=== PATIENT | female | born 1935 | race Caucasian/White ===

== ENCOUNTER 2016-11-01 13:47 | Emergency (ER) | payer MEDICARE, OTHER ==
[~2016-11-01] VITALS: Ht 157.5 cm; Wt 75.0 kg
[~2016-11-01 13:47] MED LIST: ALEN70TA30 PO; AMLO-145 PO; ASPI-664 PO; CELE200C PO; CRES10 PO; DONE10TA7 PO; DULO30CA45 PO; ESOM40VI PO; FURO20TA3 PO; MECL25TA2 PO; MONT10TA24 PO; POTA20TA15 PO; TRAM-408 PO; VALS1TAB76 PO
[2016-11-01 13:48] VITALS: Ht 157.5 cm; Wt 75.0 kg
[2016-11-01] MEDS ORDERED: KETOROLAC 15 MG INJ IV STA (13:52)
[2016-11-01] MEDS ORDERED: SOD CHLORIDE 0.9% 500 ML IV STA (13:52)
[2016-11-01] MEDS ORDERED: LORAZEPAM 2 MG INJ IV ONE (14:00)
[2016-11-01] MEDS ORDERED: LORAZEPAM 2 MG INJ ONE (14:32)
--- NOTE | 2016-11-01 14:48 | RADRPT ---
PROCEDURE: XR Chest. CLINICAL INDICATION: Chest pain, abdominal pain TECHNIQUE: AP view of the chest was performed. COMPARISON: February 18, 2013 FINDINGS: The cardiomediastinal silhouette is within normal limits. The lungs are clear. No signs of pleural f luid or pneumothorax are seen. The osseous structures and soft tissues are unremarkable. IMPRESSION: No evidence for active cardiopulmonary disease. No interval change. RPTAT: QQ .Kayleigh Nick MD, MD Date Time Electronically viewed and signed by .Kayleigh Nick MD, MD on 11/01/2016 14:47 .F/
[2016-11-01 14:58] LABS: BASOPHILS % 0.4 % (0.0-2.0); EOSINOPHILS # 0.1 10^3/ul (0.0-0.5); EOSINOPHILS % 1.8 % (0.0-7.0); HEMATOCRIT 27.5 % (37.0-47.0); HEMOGLOBIN 9.6 g/dl (12.0-16.0); LYMPHOCYTES % 30.3 % (15.0-51.0); MEAN CORPUSCULAR HEMOGLOBIN 33.4 pg (29.0-33.0); MEAN CORPUSCULAR VOLUME 95.6 fl (82.0-101.0); MEAN PLATELET VOLUME 8.3 fl (7.4-10.4); MONOCYTE # 0.7 10^3/ul (0.3-0.9); MONOCYTES % 10.3 % (0.0-11.0); NEUTROPHIL # 3.8 10^3/ul (1.6-7.5); NEUTROPHILS % 57.2 % (39.0-77.0); PLATELET COUNT 183 10^3/UL (140-440); RED BLOOD COUNT 2.88 10^6/ul (4.20-5.40); UNCORRECTED WBC 6.7 10^3/ul (4.8-10.8); WHITE BLOOD COUNT 6.7 10^3/ul (4.8-10.8)
[2016-11-01 15:03] LABS: ALBUMIN 3.7 g/dl (3.3-4.9); CHLORIDE 98 mmol/L (97-110)
[2016-11-01 15:04] LABS: SODIUM 133 mmol/L (135-144)
[2016-11-01 15:06] LABS: ALANINE AMINOTRANSFERASE 18 IU/L (13-69); ALBUMIN/GLOBULIN RATIO 1.19; ALKALINE PHOSPHATASE 61 IU/L (42-121); ANION GAP 15 (8-16); ASPARTATE AMINO TRANSFERASE 15 IU/L (15-46); BILIRUBIN,INDIRECT 0.1 mg/dl (0-1.1); BILIRUBIN,TOTAL 0.1 mg/dl (0.2-1.3); BLOOD UREA NITROGEN 17 mg/dl (7-20); CALCIUM 9.3 mg/dl (8.4-10.2); CARBON DIOXIDE 24 mmol/L (21-31); CREATININE 0.98 mg/dl (0.44-1.00); GLUCOSE 95 mg/dl (70-220); TOTAL PROTEIN 6.8 g/dl (6.1-8.1)
[2016-11-01 15:25] LABS: CONDITION 1; LH ANALYZER COMMENTS 1
[2016-11-01 15:34] LABS: TROPONIN-I < 0.012 ng/ml (0.00-0.12)
[2016-11-01] MEDS ORDERED: CELE200C PO (16:02)
[2016-11-01] MEDS ORDERED: VALS160T20 PO (16:03)
[2016-11-01] MEDS ORDERED: CRES10 PO (16:03)
[2016-11-01] MEDS ORDERED: LUBI24CA7 PO (16:05)
[2016-11-01] MEDS ORDERED: MECL-77 PO (16:06)
[2016-11-01] MEDS ORDERED: TRAM-40 PO (16:08)
[2016-11-01] MEDS ORDERED: TRAZ50TA18 PO (16:09)
[2016-11-01] MEDS ORDERED: ALEN70TA30 PO (16:09)
[2016-11-01] MEDS ORDERED: FURO20TA3 PO (16:11)
[2016-11-01 16:28] LABS: URINE BILIRUBIN (Dip) NEGATIVE (NEGATIVE); URINE BLOOD (Dip) TRACE (NEGATIVE); URINE COLOR LT. YELLOW (YELLOW); URINE GLUCOSE (Dip) NEGATIVE (NEGATIVE); URINE KETONES (Dip) NEGATIVE (NEGATIVE); URINE LEUKOCYTE ESTERASE (Dip) 1+ (NEGATIVE); URINE NITRITE (Dip) NEGATIVE (NEGATIVE); URINE TOTAL PROTEIN (Dip) NEGATIVE (NEGATIVE); URINE UROBILINOGEN (Dip) 0.2 E.U./dL (0.1-1.0)
[2016-11-01 16:44] LABS: ADD UMIC YES
[2016-11-01 16:45] LABS: BACTERIA,URINE MANY; SQUAMOUS EPITHELIAL CELL,UR FEW; URINE RBCS 0-2 /HPF (0)
[2016-11-01] MEDS ORDERED: ALPR0.5T PO (17:12)
[2016-11-01] MEDS ORDERED: CEPH-443 PO (17:12)
[2016-11-01] MEDS ORDERED: NAPR-260 PO (17:12)
--- NOTE | 2016-11-01 17:22 | ERD ---
ER Documentation Chief Complaint Date/Time DATE: 11/01/16 TIME: 17:14 Chief Complaint To room BIBA with copmplaint of Anxiety HPI 81-year-old woman brought in by EMS from home for elevated blood pressure, anxiety, and left upper back pain. She has had these symptoms before. She denies chest pain or shortness of breath, no fevers or chills, no vomiting or diarrhea. ROS All systems reviewed and are negative except as per history of present illness. Medications Home Meds Active Scripts Alprazolam* (Xanax*) 0.5 Mg Tab, 0.5 MG PO TID for MUSCLE SPASMS, #12 TAB Prov:CECILIA JACOBO MD 11/01/16 Cephalexin* (Keflex*) 500 Mg Capsule, 500 MG PO TID for 5 Days, CAP Prov:CECILIA JACOBO MD 11/01/16 Naproxen* (Naprosyn*) 500 Mg Tablet, 500 MG PO BID Y for PAIN AND/OR INFLAMMATION, #30 TAB Prov:CECILIA JACOBO MD 11/01/16 Reported Medications Furosemide* (Furosemide*) 20 Mg Tablet, 20 MG PO DAILY, #60 TAB 11/01/16 Alendronate Sodium* (Fosamax*) 70 Mg Tablet, 70 MG PO Q7D, #4 TAB 11/01/16 Trazodone Hcl* (Trazodone Hcl*) 50 Mg Tablet, 50 MG PO QHS, #30 TAB 11/01/16 Tramadol Hcl* (Ultram*) 50 Mg Tablet, 50 MG PO Q12H Y for PAIN, TAB 11/01/16 Meclizine Hcl* (Meclizine Hcl*) 25 Mg Tablet, 25 MG PO Q12 Y for DIZZINESS, TAB 11/01/16 Lubiprostone* (Amitiza*) 24 Mcg Capsule, 24 MCG PO BID, #60 CAP 11/01/16 Valsartan* (Diovan*) 160 Mg Tablet, 160 MG PO DAILY, TAB 11/01/16 Rosuvastatin Calcium* (Crestor*) 10 Mg Tablet, 10 MG PO QHS, #30 TAB 11/01/16 Celecoxib* (Celebrex*) 200 Mg Capsule, 200 MG PO DAILY, CAP 11/01/16 Discontinued Reported Medications Meclizine Hcl* (Antivert*) 25 Mg Tablet, 1 TAB PO BID 02/18/13 Donepezil* (Donepezil*) 10 Mg Tablet, 1 TAB PO DAILY 02/18/13 Aspirin (Aspirin) 81 Mg Tablet.dr, 1 TAB PO DAILY 02/18/13 Alendronate Sodium* (Fosamax*) 70 Mg Tablet, 1 TAB PO WEEKLY 02/18/13 Duloxetine Hcl* (Cymbalta*) 30 Mg Capsule.dr, 1 CAP PO DAILY 02/18/13 Esomeprazole Sodium (Nexium I.V.) 40 Mg/Vial Vial, 1 CAP PO 02/18/13 Furosemide* (Furosemide*) 20 Mg Tablet, 1 TAB PO DAILY 02/18/13 Tramadol Hcl (Rybix Odt) 50 Mg Tab.rapdis, 1 TAB PO Q8HRS 02/18/13 Amlodipine Besylate* (Amlodipine Besylate*) 5 Mg Tablet, 1 TAB PO DAILY 02/18/13 Celecoxib* (Celebrex*) 200 Mg Capsule, 1 TAB PO DAILY 02/18/13 Montelukast Sodium* (Montelukast Sodium*) 10 Mg Tablet, 1 TAB PO DAILY 02/18/13 Valsartan-Hydrochlorothiazide (Valsartan-HCTZ) 1 Each Tablet, 1 TAB PO DAILY 02/18/13 Rosuvastatin Calcium* (Crestor*) 10 Mg Tablet, 10 MG PO DAILY 02/18/13 Potassium Chloride* (K-Dur*) 20 Meq Tab.prt.sr, 20 PO DAILY 02/18/13 Allergies Allergies: Coded Allergies: No Known Allergy (Unverified , 11/01/16) PMhx/Soc Depression, anxiety, obesity, hypertension History of Surgery: No Anesthesia Reaction: No Hx Neurological Disorder: No Hx Respiratory Disorders: No Hx Cardiac Disorders: Yes (HTN) Hx Psychiatric Problems: No Hx Miscellaneous Medical Probl: No Hx Alcohol Use: No Hx Substance Use: No Hx Tobacco Use: No Smoking Status: Never smoker FmHx Family History: No diabetes Physical Exam Vitals Vital Signs Date Time Temp Pulse Resp B/P Pulse Ox O2 Delivery O2 Flow Rate FiO2 11/01/16 14:45 98.3 69 20 141/64 93 Room Air 11/01/16 13:48 98.3 73 20 150/75 94 Physical Exam GENERAL: Well-developed, well-nourished, anxious, dehydrated HEENT: Dry mucous membranes, pink conjunctiva, no cervical spine tenderness or step-off deformities, no goiter, no jaundice or icterus, extraocular movements intact without pain. No submandibular induration, and no pharyngeal erythema NEURO: Alert and oriented 3, cranial nerves II through XII intact bilaterally, pupils equal round reactive to light, no focal deficits or facial asymmetry, sensation intact distally Strength 5/5 in upper and lower extremities bilaterally CARDIAC: Regular rate and rhythm, no murmurs rubs or gallops LUNGS: Clear bilaterally no wheezing crackles or stridor ABDOMEN: Soft nontender, no guarding, no rigidity, no rebound, no psoas sign no obturator sign. Normoactive bowel sounds SKIN: Warm and dry to touch, no abrasions, contusions, or hematomas, no lacerations, no ecchymosis, no target lesions, and without ulcers EXTREMITIES: No clubbing cyanosis or edema, calves are bilaterally symmetrical, no Homans sign, no popliteal cord sign. Distal pulses equal and bilateral PSYCH: Anxious Result Diagram: 11/01/16 1423 11/01/16 1423 Results 24 hrs Laboratory Tests Test 11/01/16 14:23 11/01/16 16:16 Alanine Aminotransferase (ALT/SGPT) 18IU/L Albumin 3.7g/dl Albumin/Globulin Ratio 1.19 Alkaline Phosphatase 61IU/L Anion Gap 15 Aspartate Amino Transf (AST/SGOT) 15IU/L Basophils # 0.010^3/ul Basophils % 0.4% Blood Morphology Comment Blood Urea Nitrogen 17mg/dl Calcium Level 9.3mg/dl Carbon Dioxide Level 24mmol/L Chloride Level 98mmol/L Creatinine 0.98mg/dl Direct Bilirubin 0.00mg/dl Eosinophils # 0.110^3/ul Eosinophils % 1.8% Globulin 3.10g/dl Glucose Level 95mg/dl Hematocrit 27.5% Hemoglobin 9.6g/dl Indirect Bilirubin 0.1mg/dl Lipase 166U/L Lymphocytes # 2.010^3/ul Lymphocytes % 30.3% Mean Corpuscular Hemoglobin 33.4pg Mean Corpuscular Hemoglobin Concent 35.0g/dl Mean Corpuscular Volume 95.6fl Mean Platelet Volume 8.3fl Monocytes # 0.710^3/ul Monocytes % 10.3% Neutrophils # 3.810^3/ul Neutrophils % 57.2% Nucleated Red Blood Cells # 0.010^3/ul Nucleated Red Blood Cells % 0.0/100WBC Platelet Count 34521^3/UL Potassium Level 4.0mmol/L Red Blood Count 2.8810^6/ul Red Cell Distribution Width 15.0% Sodium Level 133mmol/L Total Bilirubin 0.1mg/dl Total Protein 6.8g/dl Troponin I < 0.012ng/ml White Blood Count 6.710^3/ul Urine Bacteria MANY Urine Bilirubin NEGATIVE Urine Clarity HAZY Urine Color LT. YELLOW Urine Glucose NEGATIVE% Urine Hemoglobin TRACE Urine Ketones NEGATIVE Urine Leukocyte Esterase 1+ Urine Microscopic RBC 0-2/HPF Urine Microscopic WBC 2-5/HPF Urine Nitrite NEGATIVE Urine Specific [place] <=1.005 Urine Squamous Epithelial Cells FEW Urine Total Protein NEGATIVE Urine Urobilinogen 0.2 E.U./dL Urine pH 6.0 Current Medications Medications (Trade) Dose Ordered Sig/Amrit Route PRN Reason Start Time Stop Time Status Last Admin Dose Admin Sodium Chloride (NS) 500 ml @ 500 mls/hr Q1H STAT IV 11/01/16 13:52 11/01/16 14:51 DC 11/01/16 14:40 Ketorolac Tromethamine (Toradol) 15 mg ONCE STAT IV 11/01/16 13:52 11/01/16 14:34 DC 11/01/16 14:38 Lorazepam (Ativan) 0.5 mg ONCE ONCE IV 11/01/16 14:00 11/01/16 14:34 DC 11/01/16 14:39 Lorazepam (Ativan) 2 mg STK-MED ONCE .ROUTE 11/01/16 14:32 11/01/16 14:33 DC Procedures/MDM IV line was established patient was placed on stereo operator rhythm strip revealed a sinus rhythm at about 80 bpm with upright P and T waves. Patient was afebrile. For her symptoms on her dehydration I administered normal saline 0.5 L intravenously, Toradol 50 mg IV, and lorazepam 0.5 mg IV with excellent effect. EKG performed, read by me: 75 bpm, normal sinus rhythm, normal axis, no acute ST segment changes, narrow QRS complex, with good R-wave progression in precordial leads. One AP view of the chest performed, read by me reveals no acute infiltrates, normal mediastinum, sharp costophrenic and cardiac borders, no air under the diaphragm. Otherwise unremarkable chest x-ray. CBC was unremarkable, electrolytes revealed dehydration, liver function tests are normal, troponin was negative. Urine analysis revealed 1+ leukocytes and many bacteria concerning for urinary tract infection. I will treat the patient as an outpatient with oral antibiotics for UTI although her symptoms including anxiety and pain have completely resolved and she has been rehydrated here in the emergency department. Her vital signs are normal and she remains afebrile. Differential diagnoses considered, included but not limited to acute coronary syndrome, pulmonary embolism, aortic dissection, abdominal aortic aneurysm, sepsis, stroke, meningitis, encephalitis, pneumonia, appendicitis, cholecystitis , bowel obstruction, pyelonephritis, nephrolithiasis, cystitis, as well as metabolic, hematologic, and electrolyte abnormalities. As well as abscess, cellulitis, fractures, and dislocations. Patient feels much better at this time, and vital signs are normal, symptoms have improved. I did give strict instructions to return to the ED if symptoms continue or worsen, patient will otherwise follow-up with primary care physician. Patient understood instructions and agreed to plan. Departure Diagnosis: Primary Impression: Anxiety Additional Impressions: Shoulder strain Encounter type: initial encounter Laterality: left Qualified Code: S46.912A - Shoulder strain, left, initial encounter UTI (urinary tract infection) Urinary tract infection type: acute cystitis Hematuria presence: without hematuria Qualified Code: N30.00 - Acute cystitis without hematuria Dehydration Condition: Good Patient Instructions: Anxiety Reaction, Shoulder Sprain , Bladder Infection, Female (Adult) CECILIA JACOBO MD Nov 01, 2016 17:22
[2016-11-01 17:56] VITALS: BP 173/85; PULSE 65; RESP 22; TEMP 98.3
== END 2016-11-01 17:57 | disposition home or self-care (01) ==
LOC: E/R 13:47
DX: F41.9 Anxiety disorder, unspecified (principal); R40.2252 Coma scale, best verbal response, oriented, at arrival to emergency department; S46.912A Strain of unspecified muscle, fascia and tendon at shoulder and upper arm level, left arm, initial encounter; N30.00 Acute cystitis without hematuria; E86.0 Dehydration; I10 Essential (primary) hypertension; E66.9 Obesity, unspecified; R40.2362 Coma scale, best motor response, obeys commands, at arrival to emergency department; R40.2142 Coma scale, eyes open, spontaneous, at arrival to emergency department; X58.XXXA Exposure to other specified factors, initial encounter; Y92.9 Unspecified place or not applicable; Z68.30 Body mass index [BMI] 30.0-30.9, adult; Z79.82 Long term (current) use of aspirin
CPT/HCPCS: 36415; 71010; 80053; 81001; 83690; 84484; 85025; 87086; 93005; 96374; 96375; 99285; J1885; J2060; J7040; 81003

== ENCOUNTER 2016-12-25 16:55 | Emergency (ER) | payer MEDICARE, OTHER ==
[~2016-12-25] VITALS: Ht 162.6 cm; Wt 72.7 kg
[~2016-12-25 16:55] MED LIST changes: +ALPR0.5T PO; -AMLO-145 PO; -ASPI-664 PO; +CEPH-443 PO; -DONE10TA7 PO; -DULO30CA45 PO; -ESOM40VI PO; +LUBI24CA7 PO; +MECL-77 PO; -MECL25TA2 PO; -MONT10TA24 PO; +NAPR-260 PO; -POTA20TA15 PO; +TRAM-40 PO; -TRAM-408 PO; +TRAZ50TA18 PO; +VALS160T20 PO; -VALS1TAB76 PO
[2016-12-25 16:58] VITALS: Ht 162.6 cm; Wt 72.7 kg
[2016-12-25] MEDS ORDERED: SOD CHLORIDE 0.9% 500 ML IV STA (17:10)
[2016-12-25 17:21] LABS: ADD SCAN DIFF NO
[2016-12-25 17:23] LABS: BASOPHILS % 0.5 % (0.0-2.0); EOSINOPHILS # 0.1 10^3/ul (0.0-0.5); HEMOGLOBIN 10.2 g/dl (12.0-16.0); LYMPHOCYTES # 2.2 10^3/ul (0.8-2.9); LYMPHOCYTES % 29.9 % (15.0-51.0); MEAN CORPUSCULAR HEMOGLOBIN 33.1 pg (29.0-33.0); MEAN CORPUSCULAR VOLUME 97.4 fl (82.0-101.0); MONOCYTE # 0.7 10^3/ul (0.3-0.9); MONOCYTES % 9.8 % (0.0-11.0); NEUTROPHIL # 4.3 10^3/ul (1.6-7.5); NEUTROPHILS % 58.5 % (39.0-77.0); PLATELET COUNT 180 10^3/UL (140-415); RED BLOOD COUNT 3.08 10^6/ul (4.20-5.40); RED CELL DISTRIBUTION WIDTH 13.4 % (11.5-14.5); WHITE BLOOD COUNT 7.3 10^3/ul (4.8-10.8)
[2016-12-25] MEDS ORDERED: LORAZEPAM 2 MG INJ IV ONE (17:30)
[2016-12-25 17:33] LABS: ALBUMIN 3.7 g/dl (3.3-4.9); CHLORIDE 96 mmol/L (97-110)
[2016-12-25 17:34] LABS: POTASSIUM 3.9 mmol/L (3.5-5.1); SODIUM 132 mmol/L (135-144)
[2016-12-25 17:36] LABS: ALANINE AMINOTRANSFERASE 17 IU/L (13-69); ALBUMIN/GLOBULIN RATIO 1.12; ALKALINE PHOSPHATASE 58 IU/L (42-121); ANION GAP 15 (8-16); ASPARTATE AMINO TRANSFERASE 19 IU/L (15-46); BILIRUBIN,INDIRECT 0.4 mg/dl (0-1.1); BILIRUBIN,TOTAL 0.4 mg/dl (0.2-1.3); BLOOD UREA NITROGEN 11 mg/dl (7-20); CARBON DIOXIDE 25 mmol/L (21-31); CREATININE 0.94 mg/dl (0.44-1.00); GLUCOSE 107 mg/dl (70-220)
[2016-12-25 17:37] LABS: CALCIUM 8.6 mg/dl (8.4-10.2)
[2016-12-25 17:54] LABS: TROPONIN-I < 0.012 ng/ml (0.00-0.12)
[2016-12-25] MEDS ORDERED: KETOROLAC 15 MG INJ IV STA (18:21)
[2016-12-25] MEDS ORDERED: LORA-441 PO (18:22)
--- NOTE | 2016-12-25 18:26 | ERD ---
ER Documentation Chief Complaint Date/Time DATE: 12/25/16 TIME: 18:24 Chief Complaint UPPER BILATERAL ABDOMINAL PAIN, LOWER BACK PAIN HPI 81-year-old woman brought in by EMS from home for elevated blood pressure and anxiety. Patient has long history of both and states her blood pressure went up this afternoon and there was no one at home so she called a family member and was urged to dial 911 for transport to emergency department. Patient also complains of full body aches similar to multiple previous episodes in the past. She denies abdominal pain, no chest pain, no shortness of breath, no dysuria, no abdominal pain, no vomiting or diarrhea. Patient was transported here by EMS without further complications. ROS All systems reviewed and are negative except as per history of present illness. Medications Home Meds Active Scripts Lorazepam* (Ativan*) 0.5 Mg Tablet, 0.5 MG PO Q8H Y for ANXIETY, #10 TAB Prov:CECILIA JACOBO MD 12/25/16 Reported Medications Furosemide* (Furosemide*) 20 Mg Tablet, 20 MG PO DAILY, #60 TAB 11/01/16 Valsartan* (Diovan*) 160 Mg Tablet, 160 MG PO DAILY, TAB 11/01/16 Rosuvastatin Calcium* (Crestor*) 10 Mg Tablet, 10 MG PO QHS, #30 TAB 11/01/16 Discontinued Reported Medications Alendronate Sodium* (Fosamax*) 70 Mg Tablet, 70 MG PO Q7D, #4 TAB 11/01/16 Trazodone Hcl* (Trazodone Hcl*) 50 Mg Tablet, 50 MG PO QHS, #30 TAB 11/01/16 Tramadol Hcl* (Ultram*) 50 Mg Tablet, 50 MG PO Q12H Y for PAIN, TAB 11/01/16 Meclizine Hcl* (Meclizine Hcl*) 25 Mg Tablet, 25 MG PO Q12 Y for DIZZINESS, TAB 11/01/16 Lubiprostone* (Amitiza*) 24 Mcg Capsule, 24 MCG PO BID, #60 CAP 11/01/16 Celecoxib* (Celebrex*) 200 Mg Capsule, 200 MG PO DAILY, CAP 11/01/16 Discontinued Scripts Alprazolam* (Xanax*) 0.5 Mg Tab, 0.5 MG PO TID for MUSCLE SPASMS, #12 TAB Prov:CECILIA JACOBO MD 11/01/16 Cephalexin* (Keflex*) 500 Mg Capsule, 500 MG PO TID for 5 Days, CAP Prov:CECILIA JACOBO MD 11/01/16 Naproxen* (Naprosyn*) 500 Mg Tablet, 500 MG PO BID Y for PAIN AND/OR INFLAMMATION, #30 TAB Prov:CECILIA JACBOO MD 11/01/16 Allergies Allergies: Coded Allergies: No Known Allergy (Unverified , 12/25/16) PMhx/Soc Depression, anxiety, obesity, hypertension History of Surgery: No Anesthesia Reaction: No Hx Neurological Disorder: No Hx Respiratory Disorders: No Hx Cardiac Disorders: Yes (HTN) Hx Psychiatric Problems: No Hx Miscellaneous Medical Probl: No Hx Alcohol Use: No Hx Substance Use: No Hx Tobacco Use: No FmHx Family History: No diabetes Physical Exam Vitals Vital Signs Date Time Temp Pulse Resp B/P Pulse Ox O2 Delivery O2 Flow Rate FiO2 12/25/16 19:18 98.9 63 16 161/67 97 Room Air 12/25/16 17:12 98.5 71 12 155/78 100 Room Air 12/25/16 16:58 98.5 74 18 186/76 100 Physical Exam GENERAL: Well-developed, well-nourished, anxious HEENT: Moist mucous membranes, pink conjunctiva, no cervical spine tenderness or step-off deformities, no goiter, no jaundice or icterus, extraocular movements intact without pain. No submandibular induration, and no pharyngeal erythema NEURO: Alert and oriented 3, cranial nerves II through XII intact bilaterally, pupils equal round reactive to light, no focal deficits or facial asymmetry, sensation intact distally Strength 5/5 in upper and lower extremities bilaterally CARDIAC: Regular rate and rhythm, no murmurs rubs or gallops LUNGS: Clear bilaterally no wheezing crackles or stridor ABDOMEN: Soft nontender, no guarding, no rigidity, no rebound, no psoas sign no obturator sign. Normoactive bowel sounds SKIN: Warm and dry to touch, no abrasions, contusions, or hematomas, no lacerations, no ecchymosis, no target lesions, and without ulcers EXTREMITIES: No clubbing cyanosis or edema, calves are bilaterally symmetrical, no Homans sign, no popliteal cord sign. Distal pulses equal and bilateral PSYCH: Anxious Result Diagram: 12/25/16 1715 12/25/16 1715 Results 24 hrs Laboratory Tests Test 12/25/16 17:15 White Blood Count 7.310^3/ul Red Blood Count 3.0810^6/ul Hemoglobin 10.2g/dl Hematocrit 30.0% Mean Corpuscular Volume 97.4fl Mean Corpuscular Hemoglobin 33.1pg Mean Corpuscular Hemoglobin Concent 34.0g/dl Red Cell Distribution Width 13.4% Platelet Count 26192^3/UL Mean Platelet Volume 10.0fl Neutrophils % 58.5% Lymphocytes % 29.9% Monocytes % 9.8% Eosinophils % 1.0% Basophils % 0.5% Nucleated Red Blood Cells % 0.0/100WBC Neutrophils # 4.310^3/ul Lymphocytes # 2.210^3/ul Monocytes # 0.710^3/ul Eosinophils # 0.110^3/ul Basophils # 0.010^3/ul Nucleated Red Blood Cells # 0.010^3/ul Sodium Level 132mmol/L Potassium Level 3.9mmol/L Chloride Level 96mmol/L Carbon Dioxide Level 25mmol/L Anion Gap 15 Blood Urea Nitrogen 11mg/dl Creatinine 0.94mg/dl Glucose Level 107mg/dl Calcium Level 8.6mg/dl Total Bilirubin 0.4mg/dl Direct Bilirubin 0.00mg/dl Indirect Bilirubin 0.4mg/dl Aspartate Amino Transf (AST/SGOT) 19IU/L Alanine Aminotransferase (ALT/SGPT) 17IU/L Alkaline Phosphatase 58IU/L Troponin I < 0.012ng/ml Total Protein 7.0g/dl Albumin 3.7g/dl Globulin 3.30g/dl Albumin/Globulin Ratio 1.12 Lipase 107U/L Current Medications Medications (Trade) Dose Ordered Sig/Amrit Route PRN Reason Start Time Stop Time Status Last Admin Dose Admin Sodium Chloride (NS) 500 ml @ 500 mls/hr Q1H STAT IV 12/25/16 17:10 12/25/16 18:09 DC 12/25/16 17:27 Lorazepam (Ativan) 1 mg ONCE ONCE IV 12/25/16 17:30 12/25/16 17:31 DC 12/25/16 17:26 Ketorolac Tromethamine (Toradol) 15 mg ONCE STAT IV 12/25/16 18:21 12/25/16 18:22 DC 12/25/16 18:51 Procedures/MDM IV line was established patient was placed on security monitor rhythm strip revealed a sinus rhythm asked to beats per minute with upright P and T waves. EKG performed, read by me: 65 bpm, normal sinus rhythm, normal axis, no acute ST segment changes, narrow QRS complex, with good R-wave progression in precordial leads. I administered 500 mL normal saline intravenously, lorazepam 1 mg IV, and Toradol 15 mg IV with good response. CBC and electrolytes were unremarkable, liver function tests are normal, troponin was negative. Differential diagnoses considered, included but not limited to acute coronary syndrome, pulmonary embolism, aortic dissection, abdominal aortic aneurysm, sepsis, stroke, meningitis, encephalitis, pneumonia, appendicitis, cholecystitis , bowel obstruction, pyelonephritis, nephrolithiasis, cystitis, as well as metabolic, hematologic, and electrolyte abnormalities. As well as abscess, cellulitis, fractures, and dislocations. Patient feels much better at this time, and vital signs are normal, symptoms have improved. I did give strict instructions to return to the ED if symptoms continue or worsen, patient will otherwise follow-up with primary care physician. Patient understood instructions and agreed to plan. Departure Diagnosis: Primary Impression: Anxiety Additional Impression: Hypertension Hypertension type: essential hypertension Qualified Code: I10 - Essential hypertension Condition: Good Patient Instructions: High Blood Pressure (Hypertension), Anxiety Reaction CECILIA JACOBO MD Dec 25, 2016 18:26
[2016-12-25 19:18] VITALS: BP 161/67; PULSE 63; RESP 16; TEMP 98.9
== END 2016-12-25 19:27 | disposition home or self-care (01) ==
LOC: E/R 16:55
DX: F41.9 Anxiety disorder, unspecified (principal); R40.2252 Coma scale, best verbal response, oriented, at arrival to emergency department; I10 Essential (primary) hypertension; E66.9 Obesity, unspecified; R40.2142 Coma scale, eyes open, spontaneous, at arrival to emergency department; R40.2362 Coma scale, best motor response, obeys commands, at arrival to emergency department; Z68.27 Body mass index [BMI] 27.0-27.9, adult
CPT/HCPCS: 80053; 83690; 84484; 85025; 93005; J1885; J2060; J7040; 36415; 96374; 96375

== ENCOUNTER 2016-12-31 22:17 | Emergency (ER) | payer MEDICARE, OTHER ==
[~2016-12-31] VITALS: Ht 152.4 cm; Wt 71.0 kg
[~2016-12-31 22:17] MED LIST changes: -ALEN70TA30 PO; -ALPR0.5T PO; -CELE200C PO; -CEPH-443 PO; +LORA-441 PO; -LUBI24CA7 PO; -MECL-77 PO; -NAPR-260 PO; -TRAM-40 PO; -TRAZ50TA18 PO
[2016-12-31 22:33] VITALS: Ht 152.4 cm; Wt 71.0 kg
--- NOTE | 2016-12-31 23:26 | ERA ---
ER Documentation Chief Complaint Date/Time DATE: 12/31/16 TIME: 23:25 Chief Complaint urinary retention. HPI The patient is a 81-year-old female, presenting to the ER because of urinary retention, unable to void, dysuria and lower back pain. She has similar symptoms previously, last seen in the ER 2 weeks ago for similar symptoms. He is awaiting to see urologist in 2 days. She denies fever, chills, neck pain, chest pain, dyspnea, abdominal pain, vomiting. She complains of loose stool, denies constipation. She does not smoke nor drink Past medical history: Anxiety, hypertension, dyslipidemia, osteoporosis Past surgical history: None ROS All systems reviewed and are negative except as per history of present illness. Medications Home Meds Active Scripts Lorazepam* (Ativan*) 0.5 Mg Tablet, 0.5 MG PO Q8H Y for ANXIETY, #10 TAB Prov:CECILIA JACOBO MD 12/25/16 Reported Medications Furosemide* (Furosemide*) 20 Mg Tablet, 20 MG PO DAILY, #60 TAB 11/01/16 Valsartan* (Diovan*) 160 Mg Tablet, 160 MG PO DAILY, TAB 11/01/16 Rosuvastatin Calcium* (Crestor*) 10 Mg Tablet, 10 MG PO QHS, #30 TAB 11/01/16 Discontinued Reported Medications Alendronate Sodium* (Fosamax*) 70 Mg Tablet, 70 MG PO Q7D, #4 TAB 11/01/16 Trazodone Hcl* (Trazodone Hcl*) 50 Mg Tablet, 50 MG PO QHS, #30 TAB 11/01/16 Tramadol Hcl* (Ultram*) 50 Mg Tablet, 50 MG PO Q12H Y for PAIN, TAB 11/01/16 Meclizine Hcl* (Meclizine Hcl*) 25 Mg Tablet, 25 MG PO Q12 Y for DIZZINESS, TAB 11/01/16 Lubiprostone* (Amitiza*) 24 Mcg Capsule, 24 MCG PO BID, #60 CAP 11/01/16 Celecoxib* (Celebrex*) 200 Mg Capsule, 200 MG PO DAILY, CAP 11/01/16 Discontinued Scripts Alprazolam* (Xanax*) 0.5 Mg Tab, 0.5 MG PO TID for MUSCLE SPASMS, #12 TAB Prov:CECILIA JACOBO MD 11/01/16 Cephalexin* (Keflex*) 500 Mg Capsule, 500 MG PO TID for 5 Days, CAP Prov:CECILIA JACOBO MD 11/01/16 Naproxen* (Naprosyn*) 500 Mg Tablet, 500 MG PO BID Y for PAIN AND/OR INFLAMMATION, #30 TAB Prov:CECILIA JACOBO MD 11/01/16 Allergies Allergies: Coded Allergies: No Known Allergy (Unverified , 12/25/16) PMhx/Soc History of Surgery: No Anesthesia Reaction: No Hx Neurological Disorder: No Hx Respiratory Disorders: No Hx Cardiac Disorders: Yes (HTN) Hx Psychiatric Problems: No Hx Miscellaneous Medical Probl: No Hx Alcohol Use: No Hx Substance Use: No Hx Tobacco Use: No Physical Exam Vitals Vital Signs Date Time Temp Pulse Resp B/P Pulse Ox O2 Delivery O2 Flow Rate FiO2 12/31/16 22:33 97.4 86 20 128/62 97 Physical Exam Const: No acute distress. Head: Atraumatic. Eyes: Normal Conjunctiva. ENT: Normal External Ears, Nose and Mouth. Neck: Full range of motion. No meningismus. Resp: Clear to auscultation bilaterally. Cardio: Regular rate and rhythm, no murmurs. Abd: Soft, non distended, normal bowel sounds, vague and diffuse abdominal discomfort, no rigidity, rebound, CVA tenderness Skin: No petechiae or rashes. Back: No midline or flank tenderness. Ext: No cyanosis, or edema. Neur: Awake and alert. No focal deficit Psych: Normal Mood and Affect. Result Diagram: 12/31/16 2349 12/31/16 2349 Results 24 hrs Laboratory Tests Test 12/31/16 23:49 12/31/16 23:57 White Blood Count 8.410^3/ul Red Blood Count 3.3010^6/ul Hemoglobin 10.9g/dl Hematocrit 31.4% Mean Corpuscular Volume 95.2fl Mean Corpuscular Hemoglobin 33.0pg Mean Corpuscular Hemoglobin Concent 34.7g/dl Red Cell Distribution Width 13.3% Platelet Count 91022^3/UL Mean Platelet Volume 9.7fl Neutrophils % 59.3% Lymphocytes % 30.8% Monocytes % 8.0% Eosinophils % 1.2% Basophils % 0.5% Nucleated Red Blood Cells % 0.0/100WBC Neutrophils # 5.010^3/ul Lymphocytes # 2.610^3/ul Monocytes # 0.710^3/ul Eosinophils # 0.110^3/ul Basophils # 0.010^3/ul Nucleated Red Blood Cells # 0.010^3/ul Sodium Level 130mmol/L Potassium Level 3.7mmol/L Chloride Level 96mmol/L Carbon Dioxide Level 26mmol/L Anion Gap 12 Blood Urea Nitrogen 15mg/dl Creatinine 0.93mg/dl Glucose Level 101mg/dl Calcium Level 9.2mg/dl Total Bilirubin 0.4mg/dl Direct Bilirubin 0.00mg/dl Indirect Bilirubin 0.4mg/dl Aspartate Amino Transf (AST/SGOT) 20IU/L Alanine Aminotransferase (ALT/SGPT) 27IU/L Alkaline Phosphatase 64IU/L Total Protein 7.6g/dl Albumin 4.2g/dl Globulin 3.40g/dl Albumin/Globulin Ratio 1.23 Lipase 124U/L Bedside Urine pH (LAB) 7.0 Bedside Urine Protein (LAB) Negative Bedside Urine Glucose (UA) Negative Bedside Urine Ketones (LAB) Negative Bedside Urine Blood Trace-lysed Bedside Urine Nitrite (LAB) Negative Bedside Urine Leukocyte Esterase (L Negative Procedures/[place] [address] Radiology Main Line: [phone] DIAGNOSTIC IMAGING REPORT Patient: JESSICA SUTHERLAND : 1935 Age: 81 Sex: F MR #: [id number] DOS: 01/01/17 0000 Ordering MD: PAULA JACKSON MD Location: E/R Room/Bed: PROCEDURE: XR Chest. CLINICAL INDICATION: Cough. TECHNIQUE: Single frontal view of the chest. COMPARISON: 11/01/2016. FINDINGS: Cardiomegaly and atherosclerotic calcifications in the thoracic aorta. Improved lung inflation over interval, with slight left lung base atelectasis, and lungs are otherwise substantially clear.. No signs of pleural fluid or pneumothorax are seen. The osseous structures and soft tissues are unremarkable. IMPRESSION: Slight left lung base atelectasis, and otherwise, line inflation is improved over interval. RPTAT: UU Physician Yamil Date Time Electronically viewed and signed by Physician Yamil on 01/01/2017 01:23 RS/ CC: PAULA JACKSON MD [place] [address] Radiology Main Line: [phone] DIAGNOSTIC IMAGING REPORT Patient: JESSICA SUTHERLAND : 1935 Age: 81 Sex: F MR #: [id number] DOS: 01/01/17 0027 Ordering MD: PAULA JACKSON MD Location: E/R Room/Bed: PROCEDURE: CT of the abdomen and pelvis without contrast CLINICAL INDICATION: Abdominal pain. TECHNIQUE: Spiral CT images through the abdomen and pelvis without the use of contrast. The administered radiation dose is CTDI 11.9 and DLP 675.81. One or more of the following dose reduction techniques were used: automated exposure control, adjustment of the mA and/or kV according to patient size, or use of iterative reconstruction technique. COMPARISON: Lumbar spine CT from 02/18/2013 FINDINGS: Lack of oral and intravenous contrast somewhat limits evaluation. Slight bibasilar atelectasis with mild ground-glass opacity. Aortic and coronary artery calcification is seen.. The liver, kidneys, and pancreas are unremarkable in appearance. Calcified splenic granulomas are seen and there is linear calcification of the posterior splenic capsule. Slightly nodular bilateral adrenal contour is unchanged, perhaps tiny adenomas. . . There is no evidence for bowel obstruction, free air, or abscess. The appendix is normal in appearance. There is colonic diverticulosis without evidence of diverticulitis. No adenopathy or ascites is seen. Air and a Mcneill catheter are seen in the urinary bladder. The uterus and adnexa are unremarkable in appearance. Multiple calcified injection granulomas in the gluteal regions. There is mild degenerative change of the spine. Degenerative changes of the hips. IMPRESSION: Diverticulosis without evidence of diverticulitis. No definite acute abnormality of the abdomen or pelvis. Several incidental findings as above.. RPTAT: HLBE Selin Hall, Physician Date Time Electronically viewed and signed by Selin Hall Physician on 01/01/2017 02 :11 LE/ CC: PAULA JACKSON MD MEDICAL MAKING DECISION: The patient is a 81-year-old female, presenting with acute urinary retention. She was treated with a Mcneill catheter that drained out about 700 mL of urine with spontaneous relief. The differential diagnoses considered include but are not limited to urethral stricture, cystitis, cholelithiasis, cholecystitis, cystitis, pancreatitis, hepatitis, gastritis, peptic ulcer disease, gastric ulcer, appendicitis, diverticulitis, cholangitis, choledocholithiasis, partial small bowel obstruction. Departure Diagnosis: Primary Impression: Retention of urine Additional Impression: Anemia Condition: Good Comments She was discharged with a Mcneill catheter and advised to follow-up with her urologist in 2 days as scheduled, return if any concern PAULA JACKSON MD Dec 31, 2016 23:25
[2016-12-31 23:58] LABS: URINE BLOOD (Dip) POC Trace-lysed (NEGATIVE)
[2017-01-01 00:07] LABS: ADD SCAN DIFF NO
[2017-01-01 00:10] LABS: BASOPHILS % 0.5 % (0.0-2.0); EOSINOPHILS # 0.1 10^3/ul (0.0-0.5); EOSINOPHILS % 1.2 % (0.0-7.0); HEMATOCRIT 31.4 % (37.0-47.0); HEMOGLOBIN 10.9 g/dl (12.0-16.0); LYMPHOCYTES # 2.6 10^3/ul (0.8-2.9); LYMPHOCYTES % 30.8 % (15.0-51.0); MEAN CORPUSCULAR HGB CONC 34.7 g/dl (32.0-37.0); MEAN CORPUSCULAR VOLUME 95.2 fl (82.0-101.0); MEAN PLATELET VOLUME 9.7 fl (7.4-10.4); MONOCYTE # 0.7 10^3/ul (0.3-0.9); NEUTROPHILS % 59.3 % (39.0-77.0); PLATELET COUNT 218 10^3/UL (140-415); RED CELL DISTRIBUTION WIDTH 13.3 % (11.5-14.5); WHITE BLOOD COUNT 8.4 10^3/ul (4.8-10.8)
[2017-01-01 00:21] LABS: ALBUMIN 4.2 g/dl (3.3-4.9); ALBUMIN/GLOBULIN RATIO 1.23; BILIRUBIN,INDIRECT 0.4 mg/dl (0-1.1); BILIRUBIN,TOTAL 0.4 mg/dl (0.2-1.3); CALCIUM 9.2 mg/dl (8.4-10.2); CREATININE 0.93 mg/dl (0.44-1.00); POTASSIUM 3.7 mmol/L (3.5-5.1); TOTAL PROTEIN 7.6 g/dl (6.1-8.1)
--- NOTE | 2017-01-01 01:23 | RADRPT ---
PROCEDURE: XR Chest. CLINICAL INDICATION: Cough. TECHNIQUE: Single frontal view of the chest. COMPARISON: 11/01/2016. FINDINGS: Cardiomegaly and atherosclerotic calcifications in the thoracic aorta. Improved lung inflation over interval, with slight left lung base atelectasis, and lungs are otherwise substantially clear.. No signs of pleural fluid or pneumothorax are seen. The osseous structures and soft tissues are unremar kable. IMPRESSION: Slight left lung base atelectasis, and otherwise, line inflation is improved over interval. RPTAT: UU Physician Yamli Date Time Electronically viewed and signed by Physician Yamil on 01/01/2017 01:23 RS/
--- NOTE | 2017-01-01 02:11 | RADRPT ---
PROCEDURE: CT of the abdomen and pelvis without contrast CLINICAL INDICATION: Abdominal pain. TECHNIQUE: Spiral CT images through the abdomen and pelvis without the use of contrast. The admin istered radiation dose is CTDI 11.9 and DLP 675.81. One or more of the following dose reduction kenyon hniques were used: automated exposure control, adjustment of the mA and/or kV according to patient s ize, or use of iterative reconstruction technique. COMPARISON: Lumbar spine CT from 02/18/2013 FINDINGS: Lack of oral and intravenous contrast somewhat limits evaluation. Slight bibasilar atelectasis wi th mild ground-glass opacity. Aortic and coronary artery calcification is seen.. The liver, kidneys, and pancreas are unremarkable in appearance. Calcified splenic granulomas are s een and there is linear calcification of the posterior splenic capsule. Slightly nodular bilateral adrenal contour is unchanged, perhaps tiny adenomas. . . There is no evidence for bowel obstructi on, free air, or abscess. The appendix is normal in appearance. There is colonic diverticulosis wi thout evidence of diverticulitis. No adenopathy or ascites is seen. Air and a Mcneill catheter are see n in the urinary bladder. The uterus and adnexa are unremarkable in appearance. Multiple calcified injection granulomas in the gluteal regions. There is mild degenerative change of the spine. Degen erative changes of the hips. IMPRESSION: Diverticulosis without evidence of diverticulitis. No definite acute abnormality of the abdomen or pelvis. Several incidental findings as above.. RPTAT: HLBE Physician Ceferino Date Time Electronically viewed and signed by Physician Ceferino on 01/01/2017 02:11 LOU/
[2017-01-01 03:01] VITALS: BP 134/58; PULSE 70; RESP 18; TEMP 98.1
== END 2017-01-01 03:01 | disposition home or self-care (01) ==
LOC: E/R 22:17
DX: R33.9 Retention of urine, unspecified (principal); D64.9 Anemia, unspecified; R05 Cough; I10 Essential (primary) hypertension; R40.2142 Coma scale, eyes open, spontaneous, at arrival to emergency department; R40.2252 Coma scale, best verbal response, oriented, at arrival to emergency department; R40.2362 Coma scale, best motor response, obeys commands, at arrival to emergency department
CPT/HCPCS: 36415; 71010; 74176; 80053; 81003; 83690; 85025

== ENCOUNTER 2017-01-02 10:54 | Emergency (ER) | payer MEDICARE, OTHER ==
[~2017-01-02] VITALS: Wt 75.0 kg
[2017-01-02 10:55] VITALS: Wt 75.0 kg
--- NOTE | 2017-01-02 11:34 | ERD ---
ER Documentation Chief Complaint Date/Time DATE: 01/02/17 TIME: 11:28 Chief Complaint connect da silva to bag HPI 81-year-old female a past medical history of anxiety, hypertension, dyslipidemia , osteoporosis, urinary retention presents to the ED wanting help on connecting the da silva catheter to the bag. Reports that there is no issues with the placement of the Da Silva catheter. Denies any dysuria, urgency, frequency, abdominal pain, nausea, vomiting, chest pain, shortness of breath, neck pain. Denies any bloody stools, constipation. Patient's urologist is Dr. Rodolfo Lo. Patient has an appointment tomorrow at 9:45am and stated that she will follow up. ROS All systems reviewed and are negative except as per history of present illness. Medications Home Meds Active Scripts Lorazepam* (Ativan*) 0.5 Mg Tablet, 0.5 MG PO Q8H Y for ANXIETY, #10 TAB Prov:CECILIA JACOBO MD 12/25/16 Reported Medications Furosemide* (Furosemide*) 20 Mg Tablet, 20 MG PO DAILY, #60 TAB 11/01/16 Valsartan* (Diovan*) 160 Mg Tablet, 160 MG PO DAILY, TAB 11/01/16 Rosuvastatin Calcium* (Crestor*) 10 Mg Tablet, 10 MG PO QHS, #30 TAB 11/01/16 Allergies Allergies: Coded Allergies: No Known Allergy (Unverified , 12/25/16) PMhx/Soc History of Surgery: No Anesthesia Reaction: No Hx Neurological Disorder: No Hx Respiratory Disorders: No Hx Cardiac Disorders: Yes (HTN) Hx Psychiatric Problems: No Hx Miscellaneous Medical Probl: No Hx Alcohol Use: No Hx Substance Use: No Hx Tobacco Use: No Physical Exam Vitals Vital Signs Date Time Temp Pulse Resp B/P Pulse Ox O2 Delivery O2 Flow Rate FiO2 01/02/17 10:55 98.3 88 20 110/54 98 Physical Exam Const: [id number], well-nourished. In no acute distress. Head: Atraumatic, normocephalic Eyes: Normal Conjunctiva without injection. No purulent discharge. ENT: Normal external ear, nose. Moist oropharynx without tonsillar exudates. Non -erythematous pharynx. Uvula midline. No drooling. No trismus. Neck: No cervical midline tenderness. Full range of motion. No meningismus. No cervical lymphadenopathy. No JVD. Resp: Clear to auscultation bilaterally. No wheezing, rhonchi, rales, or crackles. No accessory muscle use. No retractions. Cardio: Regular rate and rhythm. No murmurs, rubs or gallops. Abd: Soft, nontender to palpation, non distended. Normal bowel sounds. No palpable masses. No rebound tenderness. No guarding. Negative McBurney's point. Negative psoas sign. Negative obturator sign. : Correct placement of the Da Silva catheter. No erythema, edema, vaginal discharge, vaginal bleeding. Skin: No petechiae or rashes Back: No midline tenderness. No CVA tenderness. Ext: No cyanosis, or edema. Neur: Awake and alert. Normal gait. Normal coordination. Psych: Normal Mood and Affect Procedures/MDM This is a 81-year-old female with a past medical history of dyslipidemia, osteoporosis, anxiety, urinary retention presents to the ED complaining of not knowing where to connect the Da Silva catheter to the bag. Patient is afebrile and nontoxic-appearing. At this time John, the nurse and I assisted the patient with connecting the da silva catheter to the bag and the bag is comfortably attached to right thigh with velcro. There is no complication with the da silva bag placement. No need for new replacement of da silva catheter. Low suspicion for sepsis, urethral stricture, urinary tract infection, pyelonephritis, appendicitis, bowel obstruction, cholangitis, cholecystitis, or other emergent conditions. Patient was strictly instructed to follow-up with urologist tomorrow, Dr. Rodolfo Lo. Instructed patient to return to the ED sooner for any worsening symptoms. Patient's questions were answered. Patient understood and agreed with discharge plan. Patient discharged stable. Departure Diagnosis: Primary Impression: Da Silva catheter in place Condition: Stable Patient Instructions: Da Silva Catheter, Care Referrals: COMMUNITY CLINICS YOU HAVE RECEIVED A MEDICAL SCREENING EXAM AND THE RESULTS INDICATE THAT YOU DO NOT HAVE A CONDITION THAT REQUIRES URGENT TREATMENT IN THE EMERGENCY DEPARTMENT. FURTHER EVALUATION AND TREATMENT OF YOUR CONDITION CAN WAIT UNTIL YOU ARE SEEN IN YOUR DOCTORS OFFICE WITHIN THE NEXT 1-2 DAYS. IT IS YOUR RESPONSIBILITY TO MAKE AN APPOINTMENT FOR FOLOW-UP CARE. IF YOU HAVE A PRIMARY DOCTOR --you should call your primary doctor and schedule an appointment IF YOU DO NOT HAVE A PRIMARY DOCTOR YOU CAN CALL OUR PHYSICIAN REFERRAL HOTLINE AT IF YOU CAN NOT AFFORD TO SEE A PHYSICIAN YOU CAN CHOSE FROM THE FOLLOWING [facility] [address] [facility] [address] [facility] [address] [facility] [address] [facility] [address] [facility] [address] [facility] [facility] YOU HAVE RECEIVED A MEDICAL SCREENING EXAM AND THE RESULTS INDICATE THAT YOU DO NOT HAVE A CONDITION THAT REQUIRES URGENT TREATMENT IN THE EMERGENCY DEPARTMENT. FURTHER EVALUATION AND TREATMENT OF YOUR CONDITION CAN WAIT UNTIL YOU ARE SEEN IN YOUR DOCTORS OFFICE WITHIN THE NEXT 1-2 DAYS. IT IS YOUR RESPONSIBILITY TO MAKE AN APPOINTMENT FOR FOLOW-UP CARE. IF YOU HAVE A PRIMARY DOCTOR --you should call your primary doctor and schedule and appointment IF YOU DO NOT HAVE A PRIMARY DOCTOR YOU CAN CALL OUR PHYSICIAN REFERRAL HOTLINE AT . IF YOU CAN NOT AFFORD TO SEE A PHYSICIAN YOU CAN CHOSE FROM THE FOLLOWING [facility] INSTITUTIONS: [facility] [address] [place] [address] [facility] [address] [place] [address] [facility] [address] [place] [address] Additional Instructions: FOLLOW UP WITH YOUR UROLOGST, DR. LO TOMORROW. Return to this facility if you are not improving as expected. CORTEZ SINGH PA-C Jan 02, 2017 11:34
== END 2017-01-02 12:02 | disposition home or self-care (01) ==
LOC: FTE 10:54
DX: Z46.6 Encounter for fitting and adjustment of urinary device (principal); I10 Essential (primary) hypertension
CPT/HCPCS: 99282

== ENCOUNTER 2017-01-13 16:47 | Emergency (ER) | payer MEDICARE, OTHER ==
[~2017-01-13] VITALS: Wt 72.7 kg
--- NOTE | 2017-01-13 18:50 | ERD ---
ER Documentation Chief Complaint Date/Time DATE: 01/13/17 TIME: 18:42 Chief Complaint LEFT SHOULDER PAIN S/P FALL IN BATHROOM X6DAYS AGO HPI Patient is an 81-year-old female with a past medical history of hypertension who presents to the ED with left shoulder pain after sustaining a fall in the bathroom 6 days ago. Patient is here with her daughter who states that she was with her the entire time in the bathroom when she fell. She also hit her head in the back. Denies passing out or losing consciousness. States that the pain has been on and off in her left shoulder. Denies any other areas of pain. Denies nausea, vomiting or diarrhea. Daughter states that patient has been acting normally with no other complaints. No other complaints. ROS All systems reviewed and are negative except as per history of present illness. Medications Home Meds Active Scripts Lorazepam* (Ativan*) 0.5 Mg Tablet, 0.5 MG PO Q8H Y for ANXIETY, #10 TAB Prov:CECILIA JACOBO MD 12/25/16 Reported Medications Furosemide* (Furosemide*) 20 Mg Tablet, 20 MG PO DAILY, #60 TAB 11/01/16 Valsartan* (Diovan*) 160 Mg Tablet, 160 MG PO DAILY, TAB 11/01/16 Rosuvastatin Calcium* (Crestor*) 10 Mg Tablet, 10 MG PO QHS, #30 TAB 11/01/16 Allergies Allergies: Coded Allergies: No Known Allergy (Unverified , 12/25/16) PMhx/Soc History of Surgery: No Anesthesia Reaction: No Hx Neurological Disorder: No Hx Respiratory Disorders: No Hx Cardiac Disorders: Yes (HTN) Hx Psychiatric Problems: No Hx Miscellaneous Medical Probl: No Hx Alcohol Use: No Hx Substance Use: No Hx Tobacco Use: No Smoking Status: Never smoker FmHx Family History: No coronary disease, No diabetes, No other Physical Exam Vitals Vital Signs Date Time Temp Pulse Resp B/P Pulse Ox O2 Delivery O2 Flow Rate FiO2 01/13/17 20:47 68 22 134/61 98 Room Air 01/13/17 16:51 98.8 78 18 152/65 97 Physical Exam GENERAL: Well-developed, well-nourished female. Appears in no acute distress. HEAD: Normocephalic, atraumatic. EYES: Pupils are equally reactive bilaterally. EOMs grossly intact. No conjunctival erythema. ENT: Moist mucous membranes. No uvula deviation. No kissing tonsils. No exudates. NECK: Supple. No lymphadenopathy or thyromegaly. No meningismus. negative kernig. negative brudinski. LUNG: Clear to auscultation bilaterally. No rhonchi, wheezing, rales or coarse breath sounds. HEART: Regular rate and rhythm. No murmurs, rubs or gallops. Extremities: Equal pulses bilaterally. No peripheral clubbing, cyanosis or edema. No unilateral leg swelling. No snuffbox tenderness. No deformities. Slight tenderness to the posterior scapula of the left. Range of motion intact. Pulses intact bilaterally. No open wounds or laceration. No wrist drop. Radius, ulnar and median nerve intact. NEUROLOGIC: Alert and oriented. Moving all four extremities. 5/5 strength in all extremities. Normal speech. Steady gait. SKIN: Normal color. Warm and dry. No rashes or lesions. Capillary refill < 2 seconds Procedures/MDM ER COURSE: I kept the patient and/or family informed of laboratory and diagnostic imaging results throughout the emergency room course. IMAGING STUDIES [place] [address] Radiology Main Line: [phone] DIAGNOSTIC IMAGING REPORT Patient: JESSICA SUTHERLAND : 1935 Age: 81 Sex: F MR #: [id number] DOS: 01/13/17 1838 Ordering MD: ROCIO MAE PA-C Location: [facility] Room/Bed: PROCEDURE: CT Brain without. CLINICAL INDICATION: Fall, pain. TECHNIQUE: A CT of the brain was performed on multidetector high-resolution CT scanner utilizing axial sections from the skull base through the vertex without contrast. The scan was reviewed in soft tissue brain and high frequency resolution bone algorithm windows. Images were reviewed on a high- resolution PACS workstation. One or more the following does reduction techniques were utilized: Automated exposure control, adjustment of the mA/ or kV according to patient's size, or use of iterative reconstruction technique. The exam CTDI = 43.50 mGy and the DLP = 720.23 mGy-cm. COMPARISON: None available. FINDINGS: The ventricles and sulci are mildly to moderately prominent indicative of volume loss. There is no intracranial hemorrhage, mass effect or midline shift. No abnormal intra-axial or extra-axial fluid collections are seen. The langston/ white matter differentiation is preserved. There are moderate scattered foci of hypoattenuation in the white matter, which are nonspecific in etiology but likely reflect chronic small vessel ischemic changes. There are moderate intracranial vascular calcifications consistent with atherosclerosis. The visualized paranasal sinuses are essentially clear. IMPRESSION: 1. No acute intracranial hemorrhage, transcortical infarction or mass effect. 2. Moderate intracranial atherosclerosis and chronic small vessel ischemic changes. 3. Mild to moderate generalized cerebral volume loss. RPTAT: HH .Griffin Yanes MD, MD Date Time Electronically viewed and signed by .Griffin Yanes MD, MD on 01/13/2017 19: 17 .N/ CC: ROCIO MAE PA-C [place] [address] Radiology Main Line: [phone] DIAGNOSTIC IMAGING REPORT Patient: JESSICA SUTHERLAND : 1935 Age: 81 Sex: F MR #: [id number] DOS: 01/13/17 1838 Ordering MD: ROCIO MAE PA-C Location: [facility]TE Room/Bed: PROCEDURE: CT cervical spine without contrast. CLINICAL INDICATION: Injury. Post traumatic neck pain after a fall TECHNIQUE: CT of the cervical spine without contrast was performed. Axial images were obtained through the cervical spine and reformatted at 1.25 mm slice thickness. Coronal and sagittal images were reformatted. Exam CTDIvol = 22.24 mGy and DLP = 493.14 mGy-cm. COMPARISON: None available. FINDINGS: Vertebral bodies: Stature at every level is preserved. The lordosis is straightened without subluxation There is diffuse decreased mineralization and trabeculation. Moderate to severe narrowing of the predental space is present. The C1 ring is intact. The occipital condyles are normal in location. Central canal and cervical spinal cord: No abnormal density within the spinal cord is evident and no intraspinal masses are delineated. C2-3: Mild disk narrowing with a small osteophyte and disk complex asymmetric to the right but no significant central stenosis. The facet joints are normal. The uncovertebral joints and foramina are unremarkable. No posterior element fracture or paraspinal soft tissue abnormality is seen C3-4: Mild loss of disk stature with anterior spondylosis and a small osteophyte/disk complex as well as vacuum disk extrusion and a right paracentral location behind the superior C4 endplate. At most there is mild central canal stenosis. The facet joints are normal. Uncovertebral hypertrophy causes mild bilateral foraminal stenosis. There is ligamentum flavum calcification. No posterior element fracture or paraspinal soft tissue abnormality is seen C4-5: Moderate to severe degenerative disk narrowing with 4 mm osteophyte and disk complex as well as ligamentum flavum calcification causing moderate acquired central stenosis. Mild bilateral facet arthropathy is present. Uncovertebral hypertrophy causes severe bilateral foraminal stenosis slightly worse on the left. No posterior element fracture or paraspinal soft tissue abnormality is seen C5-6: Moderate degenerative disk narrowing with a 3 mm osteophyte and disk complex causing mild central canal stenosis. The facet joints are normal. Uncovertebral hypertrophy contributes to moderate bilateral foraminal stenosis slightly worse on the right. No posterior element fracture or paraspinal soft tissue abnormality is seen C6-7: Moderate to severe degenerative disk narrowing and osteophyte and disk complex not causing significant central stenosis. The facet joints are normal. Uncovertebral hypertrophy causes mild bilateral foraminal stenosis. No posterior element fracture or paraspinal soft tissue abnormality is seen C7-T1: Mild degenerative disk narrowing without disk complex or central stenosis. Moderate bilateral facet arthropathy is seen. The uncovertebral joints and foramina are unremarkable. No posterior element fracture or paraspinal soft tissue abnormality is seen Non spine related findings: Atherosclerotic calcification of the visualized aorta and carotid bifurcations is severe. Note is made of severe degenerative change of the sternoclavicular joints bilaterally RPTAT:HJJR IMPRESSION: 1. No evidence of cervical spine fracture or subluxation. Straightening of the normal cervical lordosis may be from positioning but cannot exclude muscle spasm. 2. Multilevel degenerative disk disease with osteophyte and disk complex as contributing to central canal stenosis greatest at C4-5. 3. Uncovertebral hypertrophy contributes to bilateral foraminal stenosis greatest at C4-5 and to a lesser degree C3-4 and C5-6. 4. Extensive arteriosclerotic calcification. 5. Demineralization likely osteopenia or osteoporosis Physician Beverly Date Time Electronically viewed and signed by Physician Beverly on 01/13/2017 19:37 JR/ CC: ROCIO MAE PA-C [place] [address] Radiology Main Line: [phone] DIAGNOSTIC IMAGING REPORT Patient: JESSICA SUTHERLAND : 1935 Age: 81 Sex: F MR #: [id number] DOS: 01/13/17 1838 Ordering MD: ROCIO MAE PA-C Location: [facility]TE Room/Bed: PROCEDURE: X-ray Scapula CLINICAL INDICATION: Post traumatic pain, left side TECHNIQUE: AP and tangential views of the left scapula are performed COMPARISON: Left shoulder series 01/13/2017 FINDINGS: Decreased mineralization cannot exclude osteopenia or osteoporosis. There is no evidence of scapular fracture. The visualized joint spaces of the right shoulder are degenerated described in the separate shoulder report. Soft tissues are unremarkable. RPTAT:HJJR IMPRESSION: Demineralization, otherwise unremarkable left scapula series. Physician Beverly Date Time Electronically viewed and signed by Physician Beverly on 01/13/2017 20:30 JR/ CC: ROCIO MAE PA-C [place] [address] Radiology Main Line: [phone] DIAGNOSTIC IMAGING REPORT Patient: JESSICA SUTHERLAND : 1935 Age: 81 Sex: F [id number]: 01/13/17 1838 Ordering MD: ROCIO MAE PA-C Location: E Room/Bed: PROCEDURE: XR shoulder. CLINICAL INDICATION: Status post fall with left shoulder pain TECHNIQUE: Three views of the left shoulder were performed. COMPARISON: None available. FINDINGS: Decreased mineralization suggestive of osteopenia or osteoporosis. No fracture or osseous lesion is identified. Moderate to severe degenerative narrowing of the acromioclavicular joint is present with mild degenerative narrowing of the glenohumeral articulation. The soft tissues are unremarkable. RPTAT:HJJR IMPRESSION: Demineralization and osteoarthrosis without acute post traumatic abnormality of the left shoulder. Physician Beverly Date Time Electronically viewed and signed by Physician Beverly on 01/13/2017 20:29 JR/ CC: ROCIO MAE PA-C MEDICAL DECISION MAKING: This is a 81-year-old female who presents with left shoulder pain after sustaining a fall. Vital signs were reviewed. Patient is afebrile. Patient is not hypoxic. Patient is not toxic or ill-appearing. X-rays of by radiologist is unremarkable for fracture or dislocation. CT scan is read by radiologist unremarkable. Patient likely has a shoulder contusion. Low suspicion for dislocation, fracture, epidural abscess, herniation, osteomyelitis, meningitis, neurological deficit. Low suspicion for intracranial hemorrhage, meningitis, intracranial mass, concussion, temporal arteritis, stroke, elevated intracranial pressure, seizure. Low suspicion for dislocation, fracture, septic joint, compartment syndrome, osteomyelitis, cellulitis, avascular necrosis, neurological injury, vascular injury, tendon laceration. Patient was given a sling. Neurovascularly intact post splint placement. DISCHARGE: At this time, patient is stable for discharge and outpatient management with no new complaints during the ER course. Patient was sent home with copy of imaging report. Patient will be discharged home with instructions to recheck for new or worsening symptoms such as fever, nausea, weakness, LOC and to follow up with primary care in the next 1-2 days. Patient was advised to return to the ER for any new or worsening symptoms. Plan was discussed and patient and/or family understands and agrees. Home instructions were given. Departure Diagnosis: Primary Impression: Shoulder pain Laterality: left Chronicity: acute Qualified Code: M25.512 - Acute pain of left shoulder Condition: Stable ROCIO MAE PA-C Jan 13, 2017 18:50
--- NOTE | 2017-01-13 19:17 | RADRPT ---
PROCEDURE: CT Brain without. CLINICAL INDICATION: Fall, pain. TECHNIQUE: A CT of the brain was performed on multidetector high-resolution CT scanner utilizing a xial sections from the skull base through the vertex without contrast. The scan was reviewed in sof t tissue brain and high frequency resolution bone algorithm windows. Images were reviewed on a high -resolution PACS workstation. One or more the following does reduction techniques were utilized: Aut omated exposure control, adjustment of the mA/ or kV according to patient's size, or use of iterativ e reconstruction technique. The exam CTDI = 43.50 mGy and the DLP = 720.23 mGy-cm. COMPARISON: None available. FINDINGS: The ventricles and sulci are mildly to moderately prominent indicative of volume loss. There is no i ntracranial hemorrhage, mass effect or midline shift. No abnormal intra-axial or extra-axial fluid collections are seen. The langston/white matter differentiation is preserved. There are moderate scattered foci of hypoattenuation in the white matter, which are nonspecific in e tiology but likely reflect chronic small vessel ischemic changes. There are moderate intracranial v ascular calcifications consistent with atherosclerosis. The visualized paranasal sinuses are essenti ally clear. IMPRESSION: 1. No acute intracranial hemorrhage, transcortical infarction or mass effect. 2. Moderate intracranial atherosclerosis and chronic small vessel ischemic changes. 3. Mild to moderate generalized cerebral volume loss. RPTAT: HH .Griffin Yanes MD, MD Date Time Electronically viewed and signed by .Griffin Yanes MD, MD on 01/13/2017 19:17 .N/
--- NOTE | 2017-01-13 19:37 | RADRPT ---
PROCEDURE: CT cervical spine without contrast. CLINICAL INDICATION: Injury. Post traumatic neck pain after a fall TECHNIQUE: CT of the cervical spine without contrast was performed. Axial images were obtained th rough the cervical spine and reformatted at 1.25 mm slice thickness. Coronal and sagittal images wer e reformatted. Exam CTDIvol = 22.24 mGy and DLP = 493.14 mGy-cm. COMPARISON: None available. FINDINGS: Vertebral bodies: Stature at every level is preserved. The lordosis is straightened without subluxat ion There is diffuse decreased mineralization and trabeculation. Moderate to severe narrowing of th e predental space is present. The C1 ring is intact. The occipital condyles are normal in location . Central canal and cervical spinal cord: No abnormal density within the spinal cord is evident and no intraspinal masses are delineated. C2-3: Mild disk narrowing with a small osteophyte and disk complex asymmetric to the right but no si gnificant central stenosis. The facet joints are normal. The uncovertebral joints and foramina are unremarkable.No posterior element fracture or paraspinal soft tissue abnormality is seen C3-4: Mild loss of disk stature with anterior spondylosis and a small osteophyte/disk complex as we ll as vacuum disk extrusion and a right paracentral location behind the superior C4 endplate. At mo st there is mild central canal stenosis. The facet joints are normal. Uncovertebral hypertrophy cau ses mild bilateral foraminal stenosis. There is ligamentum flavum calcification.No posterior crow ent fracture or paraspinal soft tissue abnormality is seen C4-5: Moderate to severe degenerative disk narrowing with 4 mm osteophyte and disk complex as well as ligamentum flavum calcification causing moderate acquired central stenosis. Mild bilateral facet arthropathy is present. Uncovertebral hypertrophy causes severe bilateral foraminal stenosis slight ly worse on the left. No posterior element fracture or paraspinal soft tissue abnormality is seen C5-6: Moderate degenerative disk narrowing with a 3 mm osteophyte and disk complex causing mild kobe tral canal stenosis. The facet joints are normal. Uncovertebral hypertrophy contributes to moderate bilateral foraminal stenosis slightly worse on the right. No posterior element fracture or paraspin al soft tissue abnormality is seen C6-7: Moderate to severe degenerative disk narrowing and osteophyte and disk complex not causing s ignificant central stenosis. The facet joints are normal. Uncovertebral hypertrophy causes mild maximiliano ateral foraminal stenosis. No posterior element fracture or paraspinal soft tissue abnormality is seen C7-T1: Mild degenerative disk narrowing without disk complex or central stenosis. Moderate bilatera l facet arthropathy is seen. The uncovertebral joints and foramina are unremarkable.No posterior el ement fracture or paraspinal soft tissue abnormality is seen Non spine related findings: Atherosclerotic calcification of the visualized aorta and carotid bifurc ations is severe. Note is made of severe degenerative change of the sternoclavicular joints bilater ally RPTAT:HJJR IMPRESSION: 1. No evidence of cervical spine fracture or subluxation. Straightening of the normal cervical lord osis may be from positioning but cannot exclude muscle spasm. 2. Multilevel degenerative disk disease with osteophyte and disk complex as contributing to central canal stenosis greatest at C4-5. 3. Uncovertebral hypertrophy contributes to bilateral foraminal stenosis greatest at C4-5 and to a lesser degree C3-4 and C5-6. 4. Extensive arteriosclerotic calcification. 5. Demineralization likely osteopenia or osteoporosis Physician Beverly Date Time Electronically viewed and signed by Physician Beverly on 01/13/2017 19:37 /
--- NOTE | 2017-01-13 20:30 | RADRPT ---
PROCEDURE: XR shoulder. CLINICAL INDICATION: Status post fall with left shoulder pain TECHNIQUE: Three views of the left shoulder were performed. COMPARISON: None available. FINDINGS: Decreased mineralization suggestive of osteopenia or osteoporosis. No fracture or osseous lesion is identified. Moderate to severe degenerative narrowing of the acromioclavicular joint is present with mild degenerative narrowing of the glenohumeral articulation. The soft tissues are unremarkable. RPTAT:HJJR IMPRESSION: Demineralization and osteoarthrosis without acute post traumatic abnormality of the left shoulder. Physician Beverly Date Time Electronically viewed and signed by Physician Beverly on 01/13/2017 20:29 JR/
--- NOTE | 2017-01-13 20:31 | RADRPT ---
PROCEDURE: X-ray Scapula CLINICAL INDICATION: Post traumatic pain, left side TECHNIQUE: AP and tangential views of the left scapula are performed COMPARISON: Left shoulder series 01/13/2017 FINDINGS: Decreased mineralization cannot exclude osteopenia or osteoporosis. There is no evidence of scapula r fracture. The visualized joint spaces of the right shoulder are degenerated described in the sepa rate shoulder report. Soft tissues are unremarkable. RPTAT:HJJR IMPRESSION: Demineralization, otherwise unremarkable left scapula series. Physician Beverly Date Time Electronically viewed and signed by Wilber Montano Physician on 01/13/2017 20:30 /
[2017-01-13 20:47] VITALS: BP 134/61; PULSE 68; RESP 22
== END 2017-01-13 20:48 | disposition home or self-care (01) ==
LOC: FTE 16:47
DX: M25.512 Pain in left shoulder (principal); R93.0 Abnormal findings on diagnostic imaging of skull and head, not elsewhere classified
CPT/HCPCS: 70450; 72125; 73010; 73030

== ENCOUNTER 2018-11-15 11:08 | Emergency (ER) | payer MEDICARE, OTHER ==
[~2018-11-15] VITALS: Ht 165.1 cm; Wt 60.0 kg
[~2018-11-15 11:08] MED LIST changes: -CRES10 PO; +ROSU10TA55 PO
[2018-11-15 11:14] VITALS: Ht 165.1 cm; Wt 60.0 kg
[2018-11-15] MEDS ORDERED: KETOROLAC 30 MG INJ IM STA (12:00)
[2018-11-15] MEDS ORDERED: MECL-77 PO (12:01)
[2018-11-15] MEDS ORDERED: VALS320T2 PO (12:01)
[2018-11-15] MEDS ORDERED: METO-319 PO (12:01)
[2018-11-15] MEDS ORDERED: MELO7.5O PO (12:02)
[2018-11-15] MEDS ORDERED: BACL10TA PO (12:03)
[2018-11-15] MEDS ORDERED: FER325 PO (12:03)
[2018-11-15] MEDS ORDERED: CHOL100062 PO (12:05)
[2018-11-15] MEDS ORDERED: DOCU250C58 PO (12:05)
[2018-11-15] MEDS ORDERED: ESOM40CA PO (12:05)
--- NOTE | 2018-11-15 12:35 | ERD ---
ER Documentation Chief Complaint Chief Complaint RT KNEE PAIN. HX OF KNEE PAIN. RECENT CORTISONE INJ. HPI 83-year-old woman brought in by EMS from home for complaints of right knee pain, she has a long history of chronic right knee pain and osteoarthritis and about a week ago received a cortisone injection into the right knee. She also has bilateral lower extremity edema chronically and denies new swelling. She denies redness to the knee, no fevers or chills, no complaints of chest pain or shortness of breath. Patient was transported here by EMS without further co mplications ROS All systems reviewed and are negative except as per history of present illness. Medications Home Meds Reported Medications Cholecalciferol* (Vitamin D3*) 1,000 Unit Tablet, 2000 UNIT PO DAILY, TAB 11/15/18 Esomeprazole Mag Trihydrate (Nexium) 40 Mg Capsule.dr, 40 MG PO AC BREAKFAST, #30 CAP 11/15/18 Docusate Sodium* (Colace*) 250 Mg Capsule, 250 MG PO DAILY, #30 CAP 11/15/18 Baclofen* (Baclofen*) 10 Mg Tablet, 10 MG PO DAILY, TAB 11/15/18 Ferrous Sulfate* (Ferrous Sulfate*) 325 Mg Tabec, 325 MG PO DAILY, TAB 11/15/18 Meloxicam* (Meloxicam*) 7.5 Mg/5 Ml Oral.susp, 15 MG PO DAILY, #300 ML 11/15/18 Valsartan* (Diovan*) 320 Mg Tablet, 320 MG PO DAILY, TAB 11/15/18 Metoprolol Succinate* (Toprol XL*) 50 Mg Tab.er.24h, 50 MG PO DAILY, #30 TAB 11/15/18 Meclizine Hcl* (Meclizine Hcl*) 25 Mg Tablet, 25 MG PO DAILY PRN for DIZZINESS, TAB 11/15/18 Furosemide* (Furosemide*) 20 Mg Tablet, 20 MG PO DAILY, #60 TAB 11/01/16 Discontinued Reported Medications Valsartan* (Diovan*) 160 Mg Tablet, 160 MG PO DAILY, TAB 11/01/16 Rosuvastatin Calcium* (Crestor*) 10 Mg Tablet, 10 MG PO QHS, #30 TAB 11/01/16 Discontinued Scripts Lorazepam* (Ativan*) 0.5 Mg Tablet, 0.5 MG PO Q8H PRN for ANXIETY, #10 TAB Prov:CECILIA JACOBO MD 12/25/16 Allergies Allergies: Coded Allergies: No Known Allergy (Unverified , 11/15/18) PMhx/Soc Hypertension, osteoporosis, osteoarthritis, chronic pain syndrome, gastritis, CHF, peripheral edema History of Surgery: No Anesthesia Reaction: No Hx Neurological Disorder: No Hx Respiratory Disorders: No Hx Cardiac Disorders: Yes (HTN) Hx Psychiatric Problems: No Hx Miscellaneous Medical Probl: No Hx Alcohol Use: No Hx Substance Use: No Hx Tobacco Use: No Smoking Status: Never smoker FmHx Family History: No diabetes Physical Exam Vitals Vital Signs Date Temp Pulse Resp B/P (MAP) Pulse Ox O2 O2 Flow FiO2 Time Delivery Rate 11/15/18 97.9 75 16 141/63 99 11:14 (89) Physical Exam Const: No acute distress, afebrile Head: Atraumatic Eyes: Normal Conjunctiva ENT: Normal External Ears, Nose and Mouth. Neck: Full range of motion. No meningismus. Resp: Clear to auscultation bilaterally Cardio: Regular rate and rhythm, no murmurs Abd: Soft, non tender, non distended. Normal bowel sounds Skin: No petechiae or rashes Back: No midline or flank tenderness Ext: No cyanosis, 2+ pitting edema in the lower extremities bilaterally, calves symmetrical, osteoarthritic changes to both knees Neur: Awake and alert x1, no focal deficits or facial asymmetry, pupils equal round reactive to light Psych: Normal Mood and Affect Results 24 hrs Current Medications Medications Dose Sig/Amrit Start Time Status Last (Trade) Ordered Route PRN Stop Time Admin Dose Reason Admin Ketorolac 30 mg ONCE STAT 11/15/18 DC 11/15/18 Tromethamine IM 12:00 12:14 (Toradol) 11/15/18 12:01 Procedures/MDM I administered Toradol 30 mg IM x1. Doppler ultrasound of the bilateral lower extremities performed, no acute DVT noted. Three-view x-ray of the right knee was performed, read by me reveals osteoarthritic changes bilaterally, no acute fractures. Patient's vital signs are normal, pain has been controlled she will be discharged to follow-up with PMD for continued outpatient management. Patient feels much better at this time, and vital signs are normal, symptoms have improved. I did give strict instructions to return to the ED if symptoms continue or worsen, patient will otherwise follow-up with primary care physician. Patient understood instructions and agreed to plan. Disclaimer: Inadvertent spelling and grammatical errors are likely due to EHR/dictation software use and do not reflect on the overall quality of patient care. Also, please note that the electronic time recorded on this note does not necessarily reflect the actual time of the patient encounter. Departure Diagnosis: Primary Impression: Knee pain Chronicity: acute Laterality: right Qualified Codes: M25.561 - Pain in right knee Additional Impressions: Osteoarthritis Osteoarthritis location: knee Osteoarthritis type: primary Laterality: right Qualified Codes: M17.11 - Unilateral primary osteoarthritis, right knee Peripheral edema Condition: Good CECILIA JACOBO MD Nov 15, 2018 12:35
[2018-11-15] MEDS ORDERED: NAPR-985 PO (13:00)
[2018-11-15 13:55] VITALS: BP 132/71; PULSE 71; RESP 20
== END 2018-11-15 15:51 | disposition home or self-care (01) ==
LOC: E/R 11:08
DX: M25.561 Pain in right knee (principal); M17.11 Unilateral primary osteoarthritis, right knee; I11.0 Hypertensive heart disease with heart failure; I50.9 Heart failure, unspecified
CPT/HCPCS: 73562; 93970; 96372; 99285; J1885